=== PATIENT | male | born 1980 | race Hispanic/Latino ===

== ENCOUNTER 2017-05-19 12:18 | Emergency (ER) | payer OTHER ==
[~2017-05-19] VITALS: Ht 180.3 cm; Wt 129.3 kg
--- NOTE | 2017-05-19 13:17 | Diagnostic Imaging Report ---
Exam: Head CT without contrast History: Left facial numbness Comparison studies: None Technique: Axial images were obtained from the skull base to the vertex. Coronal and sagittal images reconstructed from the axial data. Intravenous contrast: None Findings: Scalp: No abnormalities. Bones: No fractures, blastic or lytic lesions. Brain sulci: Appropriate for age. Ventricles: Normal in size and configuration. No hydrocephalus. Extra-axial spaces: No masses, no fluid collection. Parenchyma: No abnormal densities. No masses, hemorrhage, acute or chronic vascular insults. Sellar/suprasellar region: No abnormalities. Craniocervical junction: Patent foramen magnum. No Chiari one malformation. Incidental findings: Mild nonspecific inflammatory mucosal thickening with small retention cysts in the right maxillary sinus. IMPRESSION: No intracranial abnormalities. Signed by: Dr. Kunal Gilmore M.D. on 05/19/2017 1:13 PM
== END 2017-05-19 13:45 | disposition home or self-care (01) ==
LOC: ER 12:18
DX: R20.0 Anesthesia of skin (principal); G51.0 Bell's palsy
CPT/HCPCS: 70450; 99284